=== PATIENT | male | born 1990 | race Caucasian/White ===

== ENCOUNTER 2023-10-18 00:16 | Inpatient (IN) | payer SELFPAY ==
[2023-10-18] VITALS (26 sets, daily range): BP systolic 95–148; BP diastolic 61–103; PULSE 65–104; RESP 10–23; TEMP 36.7–37.1; O2SAT 95–100; BMI 21.2
--- NOTE | 2023-10-18 04:11 | P.HP_ITS ---
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 He sustained withdrawal seizure w/o injuries. Had few doses of Ativan and referred to [facility] for direct admission due to lack of ICU beds in the area. On admission appears calm, not tremulous. FOR[facility]LY [facility], [facility] Social History household members: none Smoking Status: Current every day smoker alcohol intake: current Meds Home Medications and Allergies Allergies Allergy/AdvReac Type Severity Reaction Status Date / Time Penicillins Allergy Verified 10/18/23 04:20 Sulfa (Sulfonamide Allergy Verified 10/18/23 04:20 Antibiotics) Review of Systems Cardiovascular Comments: w/o chest pain Respiratory Comments: w/o SOB Gastrointestinal Comments: w/o pain Integumentary/Breasts Comments: w/o jaundice Neurologic Comments: he could've had prior alcohol withdrawal seizure Exam Vital Signs (past 8 hours): - 10/18/23 03:55 Oxygen Delivery Method Room Air Oxygen Delivery Method Room Air Const Other: In no distress, laying in bed Resp Other: normal respiratory effort Cardio Other: not tachycardic GI Other: abdomen not distended Skin Other: w/o jaundice Has chronic psoriatic rash on abdomen and chest Neuro Other: w/o tremor cognitively intact Psych Other: mildly depressed mood Assessment & Plan Assessment and plan (1) Alcohol withdrawal seizure: Status: Acute (2) Alcoholism: Status: Acute (3) Smoking: Status: Acute (4) Psoriasis: Status: Acute Assessment & Plan narrative: Alcohol withdrawal with seizure - Lorazepam, CIWA protocol - CMP, CBC pending, he was hypokalemic and hypomagnesemic in outside ED and was supplemented Alcoholism - never went to rehab - now trying to quit Smoking - nicotine patch Psoriasis - on no treatment currently GI prophylaxis - PPI DVT prophylaxis - SCDs Quality VTE Deep Vein Thrombosis/Pulmonary Embolism Present on Admission: No
[2023-10-18] MEDS: LORazepam 2 MG/ML INJ IV ×2 (04:30→08:15)
--- NOTE | 2023-10-18 06:07 | P.HP_ITS ---
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 He sustained withdrawal seizure w/o injuries. Had few doses of Ativan and referred to [facility] for direct admission due to lack of ICU beds in the area. On admission appears calm, not tremulous. PFSH Social History household members: none Smoking Status: Current every day smoker alcohol intake: current Meds Home Medications and Allergies Allergies Allergy/AdvReac Type Severity Reaction Status Date / Time Penicillins Allergy Verified 10/18/23 04:20 Sulfa (Sulfonamide Allergy Verified 10/18/23 04:20 Antibiotics) Review of Systems Cardiovascular Comments: w/o chest pain w/o palpitations Respiratory Comments: not short of breath Gastrointestinal Comments: w/o abdominal pain has hartburn Exam Vital Signs (past 8 hours): - 10/18/23 03:32 10/18/23 03:55 10/18/23 04:00 Temperature Pulse Rate 95 H 78 Respiratory Rate 14 18 Blood Pressure Pulse Oximetry 97 96 Oxygen Delivery Method Room Air 10/18/23 04:01 10/18/23 04:16 10/18/23 04:30 Temperature 98.5 F Pulse Rate 77 74 Respiratory Rate 20 16 Blood Pressure 147/97 H Pulse Oximetry 97 97 Oxygen Delivery Method 10/18/23 05:00 Temperature Pulse Rate 81 Respiratory Rate 15 Blood Pressure Pulse Oximetry 95 Oxygen Delivery Method Oxygen Delivery Method Room Air Const Other: in no distress HENMT Other: normocephalic Neck Other: supple Resp Other: normal respiratory effort Cardio Other: RRR GI Other: abdomen not tender or distended Skin Other: w/o jaundice Neuro Other: w/o tremor Extrem Other: w/o swelling Psych Other: calm on admission, after 4-5 mg of Ativan Assessment & Plan Assessment and plan (1) Alcohol withdrawal seizure: Status: Acute (2) Alcoholism: Status: Acute (3) Smoking: Status: Acute (4) Psoriasis: Status: Acute Quality VTE Deep Vein Thrombosis/Pulmonary Embolism Present on Admission: No
[2023-10-18 06:33] LABS: Alanine Aminotransferase 45 IU/L (<50); Albumin 3.2 g/dL (3.5-5.0); Albumin Globulin Ratio 1.7 (1.0-2.8); Alkaline Phosphatase 77 U/L (38-126); Aspartate Aminotransferase 113 IU/L (17-59); BUN Creatinine Ratio 13.6 (6-22); Bilirubin Total 0.9 mg/dL (0.2-1.3); Blood Urea Nitrogen 8 mg/dL (9-20); Calcium 8.3 mg/dL (8.4-10.2); Carbon Dioxide 27 mmol/L (22-32); Chloride 108 mmol/L (98-107); Estimated Glomerular Filt Rate > 60 mL/min (>60); Globulin 1.9 g/dL (1.7-4.1); Glucose 98 mg/dL (70-100); HEMOLYSIS < 15 (0-50); Magnesium 1.9 mg/dL (1.6-2.3); Potassium 3.5 mmol/L (3.4-5.1); Sodium 135 mmol/L (137-145); Total Protein 5.1 g/dL (6.3-8.2)
[2023-10-18 06:38] LABS: Add Manual Diff / Slide Review NO; Basophils Absolute Auto 0 /uL (0-100); Basophils Percent Auto 0.5 % (0-2); Eosinophils Absolute Auto 100 /uL (0-450); Eosinophils Percent Auto 2.7 % (2-4); Hematocrit 33.1 % (41-53); Hemoglobin 11.3 g/dL (13.5-17.5); Lymphocytes Absolute Auto 1400 /uL (1100-4500); Lymphocytes Percent Auto 32.5 % (25-40); Mean Corpuscular HGB Conc 34.2 % (30-36); Mean Corpuscular Hemoglobin 32.7 PG (26-34); Mean Corpuscular Volume 95.8 fL (80-100); Monocytes Absolute Auto 300 /uL (0-900); Monocytes Percent Auto 7.7 % (3-14); Neutrophils Absolute Auto 2500 /uL (1500-7000); Neutrophils Percent Auto 56.6 % (50-75); Platelet Count 41 X10^3/uL (150-400); Red Blood Cell Count 3.45 X10^6/uL (4.5-5.9); Red Cell Distribution Width 15.3 % (11.6-14.8); White Blood Cell Count 4.5 X10^3/uL (4.5-11.0)
[2023-10-18 06:42] LABS: NT-proBNP (BNP-Adult 18+) 212 pg/mL (<125)
[2023-10-18 06:48] LABS: INR 0.9 (0.9-1.3); Prothrombin Time 10.8 SECONDS (9.4-12.5)
--- NOTE | 2023-10-18 08:00 | DI.RAD.S_ITS ---
PROCEDURE: XR CHEST 1V INDICATIONS: suspected aspiration TECHNIQUE: One view of the chest was acquired. COMPARISON: None. FINDINGS: Overlying EKG leads limit evaluation. Surgical changes and devices: None. Lungs and pleura: Lungs are clear. No pleural effusions or pneumothorax. Mediastinum: Mediastinal contours appear normal. Heart size is normal. Bones and chest wall: No suspicious bony lesions. Overlying soft tissues appear unremarkable. IMPRESSION: Overlying EKG leads limit evaluation. No acute cardiopulmonary process. Dictated by: Jacqueline Obrien M.D. on 10/18/2023 at 10:40 Approved by: Jacqueline Obrien M.D. on 10/18/2023 at 10:40
[2023-10-18] MEDS: FOLIC ACID 1 MG TABLET PO (08:12)
[2023-10-18] MEDS: MULTIVITAMIN 1 TABLET 1 TAB PO (08:13)
[2023-10-18] MEDS: THIAMINE 100 MG TABLET PO (08:13)
[2023-10-18] MEDS: NICOTINE 21 MG PATCH TOP (08:13)
[2023-10-18] MEDS: PANTOPRAZOLE 40 MG VIAL 20 MG IV (08:14)
--- NOTE | 2023-10-18 08:39 | PM.HP.1 ---
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 He sustained withdrawal seizure w/o injuries. Had few doses of Ativan and referred to [facility] for direct admission due to lack of ICU beds in the area. On admission appears calm, not tremulous. Additional info: Patient notes continued tremors that improved with IV ativan. Librium po started. QUALITY CONTROL ASSOCIATE to give resources. PFSH Social History household members: none Smoking Status: Current every day smoker alcohol intake: current Meds Home Medications and Allergies Allergies Allergy/AdvReac Type Severity Reaction Status Date / Time Penicillins Allergy Verified 10/18/23 04:20 Sulfa (Sulfonamide Allergy Verified 10/18/23 04:20 Antibiotics) Review of Systems Cardiovascular Comments: w/o chest pain w/o palpitations Respiratory Comments: not short of breath Gastrointestinal Comments: w/o abdominal pain has hartburn Exam Vital Signs (past 8 hours): - 10/18/23 03:32 10/18/23 03:55 10/18/23 04:00 Temperature Pulse Rate 95 H 78 Respiratory Rate 14 18 Blood Pressure Pulse Oximetry 97 96 Oxygen Delivery Method Room Air 10/18/23 04:01 10/18/23 04:16 10/18/23 04:30 Temperature 98.5 F Pulse Rate 77 74 Respiratory Rate 20 16 Blood Pressure 147/97 H Pulse Oximetry 97 97 Oxygen Delivery Method 10/18/23 05:00 10/18/23 05:30 10/18/23 06:00 Temperature 98.0 F Pulse Rate 81 85 71 Respiratory Rate 15 15 14 Blood Pressure 114/72 Pulse Oximetry 95 96 99 Oxygen Delivery Method 10/18/23 06:24 10/18/23 06:24 10/18/23 06:30 Temperature Pulse Rate 72 74 Respiratory Rate 15 14 Blood Pressure 114/72 Pulse Oximetry 96 96 Oxygen Delivery Method 10/18/23 07:00 10/18/23 07:00 10/18/23 07:30 Temperature Pulse Rate 80 66 Respiratory Rate 11 L 14 Blood Pressure 95/61 Pulse Oximetry 96 98 Oxygen Delivery Method 10/18/23 07:59 10/18/23 07:59 10/18/23 08:00 Temperature 98.4 F Pulse Rate 92 H Respiratory Rate 16 Blood Pressure 146/100 H 148/103 H Pulse Oximetry 99 Oxygen Delivery Method 10/18/23 08:00 Temperature Pulse Rate 90 Respiratory Rate 18 Blood Pressure Pulse Oximetry 99 Oxygen Delivery Method Oxygen Delivery Method Room Air Const Other: in no distress HENMT Other: normocephalic Neck Other: supple Resp Other: normal respiratory effort Cardio Other: RRR GI Other: abdomen not tender or distended Skin Other: w/o jaundice Neuro Other: tremulous Extrem Other: w/o swelling Objective Labs 10/18/23 06:10 10/18/23 06:10 Labs: Laboratory Results - last 24 hr 10/18/23 06:10 WBC 4.5 RBC 3.45 L Hgb 11.3 L Hct 33.1 L MCV 95.8 MCH 32.7 MCHC 34.2 RDW 15.3 H Plt Count 41 L Neut % (Auto) 56.6 Lymph % (Auto) 32.5 [place] % (Auto) 7.7 Eos % (Auto) 2.7 Baso % (Auto) 0.5 Neut # (Auto) 2500 Lymph # (Auto) 1400 [place] # (Auto) 300 Eos # (Auto) 100 Baso # (Auto) 0 PT 10.8 INR 0.9 Sodium 135 L Potassium 3.5 Chloride 108 H Carbon Dioxide 27 BUN 8 L Creatinine 0.59 L Estimated GFR > 60 BUN/Creatinine Ratio 13.6 Glucose 98 Calcium 8.3 L Magnesium 1.9 Total Bilirubin 0.9 AST 113 H ALT 45 Alkaline Phosphatase 77 NT-Pro-B Natriuret Pep 212 H Total Protein 5.1 L Albumin 3.2 L Globulin 1.9 Albumin/Globulin Ratio 1.7 Assessment & Plan Assessment & Plan narrative: Alcohol withdrawal with seizure - had a seizure in [place] ED before transfer to [place], approx 48 hours after last drink - Lorazepam, CIWA protocol, librium po - seizures precautions Alcoholism - never went to rehab - now trying to quit, QUALITY CONTROL ASSOCIATE consulted Smoking - nicotine patch Psoriasis - on no treatment currently GI prophylaxis - PPI DVT prophylaxis - SCDs Dispo: 2 days to improve withdrawals. Quality VTE Deep Vein Thrombosis/Pulmonary Embolism Present on Admission: No
[2023-10-18] MEDS: chlordiazePOXIDE 25 MG CAPSULE PO (09:07)
[2023-10-18] MEDS: LOPERAMIDE 2 MG CAPSULE PO (10:24)
[2023-10-18] MEDS: POTASSIUM CHLORIDE 20 MEQ TAB 40 MEQ PO (11:57)
--- NOTE | 2023-10-18 13:34 | PM.DS.1 ---
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 He sustained withdrawal seizure w/o injuries. Had few doses of Ativan and referred to [facility] for direct admission due to lack of ICU beds in the area. On admission appears calm, not tremulous. Additional info: Patient notes continued tremors that improved with IV ativan. Librium po started. SUPERINTENDENT ELECTRIC POWER to give resources. Discharge Providers Provider Date of admission: 10/18/23 00:16 Discharge Date: 10/18/23 Consults: 10/18/23 04:08 Consult to Dietitian, Adult Routine Comment: Reason For Exam: alcoholism 10/18/23 08:40 Consult to SUPERINTENDENT ELECTRIC POWER - Soils Analyst Routine Comment: alcohol abuse resources Discharge provider: Mo Marie, Summary Hospital Course Discharge Diagnosis: Alcohol withdrawal with seizure - had a seizure in [place] ED before transfer to [place], approx 48 hours after last drink - Lorazepam, CIWA protocol, librium po - seizures precautions Alcoholism - never went to rehab - now trying to quit, SUPERINTENDENT ELECTRIC POWER consulted Smoking - nicotine patch Psoriasis - on no treatment currently Hospital Course: Patient presented to [place] ED in alcohol withdrawals, then had a seizure while there so was transferred to [facility] due to no open ICU beds. He was placed on CIWA with IV ativan plus librium. He left AMA the same day he arrived. Librium taper sent to stave off the withdrawals. Exam Vital Signs (past 8 hours): - 10/18/23 06:00 10/18/23 06:24 10/18/23 06:24 Temperature 98.0 F Pulse Rate 71 72 Respiratory Rate 14 15 Blood Pressure 114/72 114/72 Pulse Oximetry 99 96 Oxygen Delivery Method 10/18/23 06:30 10/18/23 07:00 10/18/23 07:00 Temperature Pulse Rate 74 80 Respiratory Rate 14 11 L Blood Pressure 95/61 Pulse Oximetry 96 96 Oxygen Delivery Method 10/18/23 07:30 10/18/23 07:59 10/18/23 07:59 Temperature Pulse Rate 66 92 H Respiratory Rate 14 16 Blood Pressure 146/100 H Pulse Oximetry 98 99 Oxygen Delivery Method 10/18/23 08:00 10/18/23 08:00 10/18/23 08:30 Temperature 98.4 F Pulse Rate 90 96 H Respiratory Rate 18 14 Blood Pressure 148/103 H Pulse Oximetry 99 97 Oxygen Delivery Method 10/18/23 08:35 10/18/23 08:35 10/18/23 09:00 Temperature Pulse Rate 91 H Respiratory Rate 16 Blood Pressure 123/77 123/77 Pulse Oximetry Oxygen Delivery Method Room Air 10/18/23 09:00 10/18/23 09:30 10/18/23 10:00 Temperature Pulse Rate 92 H 95 H 104 H Respiratory Rate 23 13 Blood Pressure Pulse Oximetry 98 100 97 Oxygen Delivery Method 10/18/23 10:01 10/18/23 10:01 10/18/23 10:30 Temperature Pulse Rate 100 H 85 Respiratory Rate 10 L 15 Blood Pressure 147/91 H Pulse Oximetry 97 97 Oxygen Delivery Method 10/18/23 11:00 10/18/23 11:00 10/18/23 11:30 Temperature Pulse Rate 69 65 Respiratory Rate 14 18 Blood Pressure 118/72 Pulse Oximetry 97 98 Oxygen Delivery Method 10/18/23 12:00 10/18/23 12:00 10/18/23 12:00 Temperature 98.7 F Pulse Rate 81 Respiratory Rate 17 Blood Pressure Pulse Oximetry 98 Oxygen Delivery Method Room Air 10/18/23 12:01 10/18/23 12:01 10/18/23 12:30 Temperature Pulse Rate 71 83 Respiratory Rate 14 21 Blood Pressure 139/98 H Pulse Oximetry 98 97 Oxygen Delivery Method Oxygen Delivery Method Room Air Const Other: in no distress HENMT Other: normocephalic Neck Other: supple Resp Other: normal respiratory effort Cardio Other: RRR GI Other: abdomen not tender or distended Skin Other: w/o jaundice Neuro Other: tremulous Extrem Other: w/o swelling Objective Labs 10/18/23 06:10 10/18/23 06:10 Labs: Laboratory Results - last 24 hr 10/18/23 06:10 WBC 4.5 RBC 3.45 L Hgb 11.3 L Hct 33.1 L MCV 95.8 MCH 32.7 MCHC 34.2 RDW 15.3 H Plt Count 41 L Neut % (Auto) 56.6 Lymph % (Auto) 32.5 [place] % (Auto) 7.7 Eos % (Auto) 2.7 Baso % (Auto) 0.5 Neut # (Auto) 2500 Lymph # (Auto) 1400 [place] # (Auto) 300 Eos # (Auto) 100 Baso # (Auto) 0 PT 10.8 INR 0.9 Sodium 135 L Potassium 3.5 Chloride 108 H Carbon Dioxide 27 BUN 8 L Creatinine 0.59 L Estimated GFR > 60 BUN/Creatinine Ratio 13.6 Glucose 98 Calcium 8.3 L Magnesium 1.9 Total Bilirubin 0.9 AST 113 H ALT 45 Alkaline Phosphatase 77 NT-Pro-B Natriuret Pep 212 H Total Protein 5.1 L Albumin 3.2 L Globulin 1.9 Albumin/Globulin Ratio 1.7 PFSH Social History household members: none Smoking Status: Current every day smoker alcohol intake: current Discharge Plan Discharge Plan Patient Disposition: Left Against Medical Advice Discharge orders & Medications Prescriptions: New chlordiazepoxide HCl 25 mg capsule See Rx Instructions .ROUTE .COMPLEX Qty: 10 0RF Rx Instructions: 25 mg orally 4 times daily for 1 day, then 25mg three times daily for 1 day, then 25mg twice daily for 1 day, then 25mg once daily then stop Visit Report/Discharge Packet Stand Alone Forms: Patient Portal/API, Stroke Signs & Symptoms Quality VTE Deep Vein Thrombosis/Pulmonary Embolism Present on Admission: No
--- NOTE | 2023-10-18 13:44 | CM.DANOTE ---
Patient is a 32 yo male who was admitted INPT Status on 10/17/23 for ETOH withdrawal as a direct admit from [facility]. Pt has insurance from his job but unsure which insurance carrier he has and he is established with PCP in [place]. EMR was reviewed. Per , pt with hx of ETOH use since age 15 yo with no tx hx and no prior withdrawal but had seizure withdrawal at [place] and admitted for tx at [facility]. 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 Pt confirms he has insurance through [employer] but had like 7 different choices for insurance and cannot remember which one I chose and have not received my card in the mail yet. Pt confirms that he is independent at baseline and drives and has been a functioning alcoholic since he was a teenager. Pt denies any hx of ETOH tx and is somewhat interested but currently under significant financial stress and working pay check to pay check and trying to keep his cell phone from being turned off and losing his housing. SW discussed possible options for ETOH tx including [place] [facility] T[facility] or outpt ETOH tx pending what his insurance is and their coverage for [facility]DRA tx. SW printed also [facility] (as [facility] currently closed) and additional SANDRA tx options for [place] and provided to pt. Pt states he is mostly concerned with transport back to his vehicle at [facility] and not missing work as his next day scheduled is Wed in two days. Pt does not have Medicaid and therefore no transportation benefits and states no family or friends local to provide transport back to [place]. SW assisted in printing the [facility] Bus route from [place] to [facility] where his vehicle is parked. Pt is ambulatory and Taxi Voucher provided for [employer] for $16 to [place] today at 1355 and [employer] Bus Pass to get to [facility] [employer] [facility]. Pt confirms he has enough to cover the $5 bus ticket from [facility] to [facility] in [place] as [employer] Bus Pass only good in [facility]. Pt requesting to leave AMA as he is too worried about his vehicle getting towed outside of [facility] and SW attempted to help pt to problem solve but pt requesting AMA pwk. MD and RN notified and taper medication provided and BUS AND SYS INTEGRATION SENIOR MANAGER assisted pt to ED entrance for [employer] pickup. JEANETTE stressed providing the copy of the Taxi Voucher for $16 to [place] be provided to chair car driver and JEANETTE placed original for CM Impersonator Character to sign. JUANJO Donaldson Discharge Planning/Care Management CM Discharge Assessment Start: 10/18/23 12:25 Freq: Status: Discharge Protocol: Document 10/18/23 12:25 BF (Rec: 10/18/23 12:27 BF [id number]) Discharge Planning Assessment Assigned Centrifugal Spinner JUANJO Felipe DPOA/Assigned Designee Name none Advance Directives? No Advance Directives on File No History Provided By Patient,Medical Record Has Patient been admitted in last 30 No days? Prior Living Arrangements House Household Members none Type of transporation used prior to Drives own vehicle admit Independent with ADL's Yes Is patient alert and oriented? Yes Caregiver for Another No Patient/Family Preference Drug/Alcohol Rehab Barriers to Discharge Yes Comment Trying to determine pt's insurance to determine SANDRA tx options Discharge Plan Home Transportation Arrangement Transfer from [place] in [place], pt trying to find ride back but may need bus pass Referrals Initiated Other Additional Comment Provided some ETOH/SANDRA tx options to review but waiting to confirm pt's insurance Whiteboard Updated in Patient Room with Yes name and ext. # of Centrifugal Spinner Review Status In Process Please Provide Date Initial DC 10/18/23 Assessment Was Performed Next Review Type Continued Stay Review
--- NOTE | 2023-10-21 10:02 | PC.NURSE ---
10/18/2023 1345 administered dose of librium 25mg as pt was leaving [place]. Pt stated he would be unable to get med from pharmacy in [place] so early dose given prior to him leaving. I was trying to give his discharge instructions and he was in a hurry to catch a taxi to get a bus to [place]. I scanned his med but may have forgotten to hit [place] to save the administration. I observed pt take the dose prior to his leaving.
== END 2023-10-18 13:44 | disposition left against medical advice (07) | DRG 894 ==
PROVIDERS: Admitting Provider Internal Medicine; Referring Provider Internal Medicine; Visit Provider Internal Medicine
DX: F10.239 Alcohol dependence with withdrawal, unspecified (principal); R56.9 Unspecified convulsions; E87.6 Hypokalemia; E83.42 Hypomagnesemia; L40.9 Psoriasis, unspecified; F17.210 Nicotine dependence, cigarettes, uncomplicated; Z53.29 Procedure and treatment not carried out because of patient's decision for other reasons
CPT/HCPCS: 36415; 71045; 80053; 83735; 83880; 85025; 85610; C9113; J2060